=== PATIENT | male | born 1965 | race Caucasian/White ===

== ENCOUNTER 2018-07-26 05:25 | Emergency (ER) | payer OTHER ==
--- NOTE | 2018-07-26 06:05 | EDM.PDOC ---
ED HPI GENERAL MEDICAL PROBLEM - General Chief Complaint: ENT Problem Stated Complaint: BLEEDING NOSE Time Seen by Provider: 07/26/18 05:45 Source of Information: Reports: Patient, Old Records, RN History Limitations: Reports: No Limitations - History of Present Illness INITIAL COMMENTS - FREE TEXT/NARRATIVE: 52 yo male presents with epistaxis since about midnight. Is on warfarin. Has bleeding the prior night for about 90 min. Has never had to be treated for nose bleed. Is on metoprolol for HTN. No trauma ppt'd the bleeding. Onset: Today, Sudden Onset Date: 07/26/18 Onset Time: 12:00 Duration: Hour(s):, Waxing/Waning Location: Reports: Face (nose bleed) Quality: Reports: Other (no pain) Severity: Moderate Improves with: Reports: None Worsens with: Reports: None Context: Reports: Other (take warfarin) Associated Symptoms: Reports: No Other Symptoms Treatments CERTIFIED NOVELL ENGINEER: Reports: Other (see below) (none) denies pain Pain Score (Numeric/FACES): 0 - Related Data Allergies Allergy/AdvReac Type Severity Reaction Status Date / Time bacitracin Allergy Swelling Verified 10/02/14 06:44 [From Neosporin ([id number])] bacitracin zinc Allergy Swelling Verified 10/02/14 06:44 [From Neosporin (jja-[id number])] neomycin sulfate Allergy Swelling Verified 10/02/14 06:44 [From Neosporin ([id number])] polymyxin B Allergy Swelling Verified 10/02/14 06:44 [From Neosporin ([id number])] shrimp Allergy Airway Verified 07/26/18 05:30 Tightness Home Meds: Home Meds Ibuprofen [Motrin] 1 tab PO ASDIRECTED PRN 09/25/13 [History] Warfarin [Coumadin] 5 mg PO ASDIRECTED 09/25/13 [History] Warfarin [Coumadin] 7.5 mg PO ASDIRECTED 09/25/13 [History] ALPRAZolam [Alprazolam] 0.5 mg PO ASDIRECTED PRN 10/01/14 [History] Aspirin [Halfprin] 81 mg PO DAILY 10/01/14 [History] Hydroxyurea 500 mg PO DAILY 10/01/14 [History] Metoprolol Succinate [Toprol XL 50mg] 50 mg PO DAILY 07/26/18 [History] Past Medical History HEENT History: Reports: Impaired Vision Cardiovascular History: Reports: Afib, Blood Clots/VTE/DVT Musculoskeletal History: Reports: Fracture, Other (See Below) Other Musculoskeletal History: Tib/fib fx left leg Neurological History: Reports: Concussion Psychiatric History: Reports: Anxiety Hematologic History: Reports: Anticoagulation Therapy, Polycythemia Dermatologic History: Reports: Other (See Below) Other Dermatologic History: left leg vascular sugery due to poor circulation - Infectious Disease History Infectious Disease History: Reports: Chicken Pox - Past Surgical History Musculoskeletal Surgical History: Reports: Other (See Below) Other Musculoskeletal Surgeries/Procedures:: Surgical repair of tib/fib fx Social & Family History - Tobacco Use Smoking Status *Q: Never Smoker - Caffeine Use Caffeine Use: Reports: Coffee - Recreational Drug Use Recreational Drug Use: No ED ROS ENT - Review of Systems Review Of Systems: See Below Constitutional: Reports: No Symptoms HEENT: Reports: Nosebleed Respiratory: Reports: No Symptoms Cardiovascular: Reports: No Symptoms GI/Abdominal: Reports: No Symptoms : Reports: No Symptoms Skin: Reports: No Symptoms Neurological: Reports: No Symptoms ED EXAM, ENT - Physical Exam Exam: See Below Exam Limited By: No Limitations General Appearance: Alert, WD/WN, No Apparent Distress Eye Exam: Bilateral Eye: Normal Inspection Ears: Normal External Exam, Normal Canal, Hearing Grossly Normal, Normal TMs Nose: Active Bleeding (most of the blood seen was coming from the nasopharynx.) Mouth/Throat: Normal Inspection, Normal Lips, Bleeding (from nasopharynx). No: Normal Oropharynx (blood on wall of oropharynx) Head: Atraumatic, Normocephalic Neck: Normal Inspection Respiratory/Chest: No Respiratory Distress, No Accessory Muscle Use Extremities: Normal Inspection Neurological: Alert, Oriented, CN II-XII Intact, Normal Cognition, No Motor/ Sensory Deficits Psychiatric: Normal Affect, Normal Mood Skin: Warm, Dry, Intact, Normal Color, No Rash Course - Vital Signs Text/Narrative:: 7.5 cm Rhinorocket placed with 5 ml of air, good hemostasis achieved. Last Recorded V/S: Last Vital Signs Temp 36.5 C 07/26/18 05:35 Pulse 86 07/26/18 05:35 Resp 15 07/26/18 05:35 BP 149/81 H 07/26/18 05:35 Pulse Ox 96 07/26/18 05:35 - Orders/Labs/Meds Labs: Laboratory Tests 07/26/18 Range/Units 06:10 PT 27.4 H (9.5-12.0) sec INR 2.63 H D (0.80-1.20) Departure - Departure Time of Disposition: 06:46 Disposition: Home, Self-Care 01 Condition: Good Clinical Impression: Posterior epistaxis - Discharge Information *PRESCRIPTION DRUG MONITORING PROGRAM REVIEWED*: No *COPY OF PRESCRIPTION DRUG MONITORING REPORT IN PATIENT DALI: No Instructions: Nosebleed, [id number] Referrals: PCP,None [Primary Care Provider] - Forms: ED Department Discharge Additional Instructions: Hold warfarin today. Call [facility] to report your INR of 2.63. You may add a little air to your Rhinorocket if bleeding recurs. Rest today with no lifting. Recheck first thing Sunday morning in the clinic for removal of your Rhinorocket. Drink ample fluids today. Get up slowly from lying to sitting to standing. If you feel light-headed quickly lie down and drink more fluids.
[2018-07-26 06:55] VITALS: BP 117/67
== END 2018-07-26 07:15 | disposition home or self-care (01) ==
LOC: JP.ED 05:25
DX: R04.0 Epistaxis (principal); I48.91 Unspecified atrial fibrillation; Z79.01 Long term (current) use of anticoagulants; Z79.82 Long term (current) use of aspirin; Z79.899 Other long term (current) drug therapy
CPT/HCPCS: 30905; 36415; 85610; 99284-25

== ENCOUNTER 2018-12-23 22:51 | Emergency (ER) | payer OTHER ==
[2018-12-23 23:12] VITALS: BP 162/91; PULSE 86
--- NOTE | 2018-12-23 23:40 | EDM.PDOCBH ---
ED HPI GENERAL MEDICAL PROBLEM - General Stated Complaint: FAINTED,NAUSEA Time Seen by Provider: 12/23/18 23:20 Source of Information: Reports: Patient, Family History Limitations: Reports: No Limitations - History of Present Illness INITIAL COMMENTS - FREE TEXT/NARRATIVE: 53-year-old male presents with request for evaluation after a 10 second syncopal episode. He has chronic paroxysmal atrial fibrillation, is on Coumadin but admits he missed "a few doses" over the past couple of weeks. He's been feeling well, tonight after intercourse he got up and felt lightheaded and then fainted. Within "10 seconds " he felt better and was able to get up. He had no chest pain, shortness of breath, significant palpitations and did not get hurt falling. 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 Has no headache or fever. Onset: Sudden Duration: Minutes: (Around 10 minutes) Associated Symptoms: Reports: Other ([place] lightheaded prior to fainting, no palpitations) - Related Data Allergies Allergy/AdvReac Type Severity Reaction Status Date / Time bacitracin Allergy Swelling Verified 12/23/18 23:59 [From Neosporin ([id number])] bacitracin zinc Allergy Swelling Verified 12/23/18 23:59 [From Neosporin (poy-kjv-qrkyl)] neomycin sulfate Allergy Swelling Verified 12/23/18 23:59 [From Neosporin (tyg-ago-gyvab)] polymyxin B Allergy Swelling Verified 12/23/18 23:59 [From Neosporin (rwr-jcv-clofl)] shrimp Allergy Airway Verified 12/23/18 23:59 Tightness Home Meds: Home Meds Ibuprofen [Motrin] 1 tab PO ASDIRECTED PRN 09/25/13 [History] Warfarin [Coumadin] 5 mg PO ASDIRECTED 09/25/13 [History] Warfarin [Coumadin] 7.5 mg PO ASDIRECTED 09/25/13 [History] ALPRAZolam [Alprazolam] 0.5 mg PO ASDIRECTED PRN 10/01/14 [History] Aspirin [Halfprin] 81 mg PO DAILY 10/01/14 [History] Hydroxyurea 500 mg PO DAILY 10/01/14 [History] Metoprolol Succinate [Toprol XL 50mg] 50 mg PO DAILY 07/26/18 [History] Past Medical History HEENT History: Reports: Impaired Vision Cardiovascular History: Reports: Afib, Blood Clots/VTE/DVT Musculoskeletal History: Reports: Fracture, Other (See Below) Other Musculoskeletal History: Tib/fib fx left leg Neurological History: Reports: Concussion Psychiatric History: Reports: Anxiety Hematologic History: Reports: Anticoagulation Therapy, Polycythemia Dermatologic History: Reports: Other (See Below) Other Dermatologic History: left leg vascular sugery due to poor circulation - Infectious Disease History Infectious Disease History: Reports: Chicken Pox - Past Surgical History Musculoskeletal Surgical History: Reports: Other (See Below) Other Musculoskeletal Surgeries/Procedures:: Surgical repair of tib/fib fx Social & Family History - Caffeine Use Caffeine Use: Reports: Coffee ED ROS GENERAL - Review of Systems Review Of Systems: See Below Constitutional: Denies: Fever, Chills HEENT: Denies: Vision Change Respiratory: Denies: Shortness of Breath Cardiovascular: Denies: Chest Pain, Palpitations GI/Abdominal: Denies: Abdominal Pain, Nausea, Vomiting : Reports: No Symptoms Skin: Reports: No Symptoms Neurological: Denies: Headache ED EXAM, BEHAVIORAL HEALTH - Physical Exam Exam: See Below Exam Limited By: No Limitations General Appearance: Alert, No Apparent Distress Eye Exam: Bilateral Eye: Normal Inspection Head: Atraumatic Respiratory/Chest: No Respiratory Distress, Lungs Clear Cardiovascular: Irregularly Irregular. No: Tachycardia GI/Abdominal: Soft, Non-Tender Extremities: Other (Patient has an Goran wrap around the left leg due to chronic vascular insufficiency). No: Pedal Edema Neurological: Alert, Normal Mood/Affect, No Motor/Sensory Deficits (Slight weakness of the left leg which is chronic), Oriented x 3 Psychiatric: Alert, Normal Affect Skin Exam: Warm, Dry COURSE, BEHAVIORAL HEALTH COMP - Course Vital Signs: Last Vital Signs Temp 96.4 F 12/24/18 00:05 Pulse 86 12/24/18 00:05 Resp 20 12/24/18 00:05 BP 162/91 H 12/24/18 00:05 Pulse Ox 93 L 12/24/18 00:05 Orders, Labs, Meds: Laboratory Tests 12/23/18 12/23/18 12/23/18 Range/Units 23:30 23:30 23:30 WBC 5.3 (4.5-11.0) K/uL RBC 4.53 (4.30-5.90) M/uL Hgb 15.9 H D (12.0-15.0) g/dL Hct 47.2 (40.0-54.0) % MCV 104 H (80-98) fL MCH 35 H (27-31) pg MCHC 34 (32-36) % Plt Count 263 (150-400) K/uL Neut % (Auto) 59 (36-66) % Lymph % (Auto) 31 (24-44) % [place] % (Auto) 8 H (2-6) % Eos % (Auto) 2 (2-4) % Baso % (Auto) 1 (0-1) % PT 18.1 H (9.5-12.0) sec INR 1.73 H (0.80-1.20) Sodium 140 (140-148) mmol/L Potassium 3.8 (3.6-5.2) mmol/L Chloride 104 (100-108) mmol/L Carbon Dioxide 26 (21-32) mmol/L Anion Gap 9.6 (5.0-14.0) mmol/L BUN 23 H (7-18) mg/dL Creatinine 1.1 (0.8-1.3) mg/dL Est Cr Clr Drug Dosing 84.26 mL/min Estimated GFR (MDRD) > 60 (>60) Glucose 96 (74-106) mg/dL Calcium 8.8 (8.5-10.1) mg/dL Troponin I < 0.017 (0.000-0.056) ng/mL Re-Assessment/Re-Exam: Patient was placed on cardiac monitoring and showed an atrial fibrillation with good rate control in the 80s and 90s. This was persistent throughout his hospital stay. CBC CMP and troponin were obtained as well as an INR. Labs were reassuring, however INR was only 1.75. Not only is he subtherapeutic with his anticoagulation, we do not know how long he has been in atrial fibrillation. His syncopal episode was likely vasovagal related, possibly rate related from the atrial fibrillation. Encouraged him to continue his regular medications, try to not miss any of his Coumadin doses and recheck with Dr. Penn in 1-2 weeks. He may be a candidate for cardioversion or electrophysiology evaluation if atrial fibrillation is persistent. A troponin was also checked and was 0. Patient was asymptomatic on discharge. Departure - Departure Time of Disposition: 00:27 Disposition: Home, Self-Care 01 Clinical Impression: Vasovagal syncope Atrial fibrillation Qualifiers: Atrial fibrillation type: paroxysmal Qualified Code(s): I48.0 - Paroxysmal atrial fibrillation - Discharge Information Instructions: Atrial Fibrillation, [id number] Referrals: Camron Penn MD [Primary Care Provider] - Forms: ED Department Discharge Care Plan Goals: Take all medications as prescribed, and recheck with Dr. Penn in the next 1-2 weeks. Consider cardiology consultation if atrial fibrillation is persistent. Return sooner if worsening symptoms or you develop other concerns.
== END 2018-12-24 00:27 | disposition home or self-care (01) ==
LOC: JP.ED 22:51
DX: I48.0 Paroxysmal atrial fibrillation (principal); R55 Syncope and collapse; F41.9 Anxiety disorder, unspecified; Z88.1 Allergy status to other antibiotic agents; Z91.013 Allergy to seafood; Z79.01 Long term (current) use of anticoagulants; Z79.82 Long term (current) use of aspirin; Z79.899 Other long term (current) drug therapy; Z86.73 Personal history of transient ischemic attack (TIA), and cerebral infarction without residual deficits
CPT/HCPCS: 36415; 80048; 84484; 85025; 85610; 93005; 99283

== ENCOUNTER 2019-12-23 06:44 | Day surgery (SDC) | payer OTHER ==
[2019-12-23] MEDS ORDERED: Propofol 200 MG/20 ML SDV ONE ×2 (07:08→07:58)
[2019-12-23] MEDS ORDERED: Midazolam 1 MG/ML 2 ML SDV ONE (07:09)
[2019-12-23] MEDS ORDERED: fentaNYL 100 MCG/2 ML SDV ONE (07:09)
[2019-12-23] MEDS ORDERED: Dextrose 5%-Lactated Ringers 1,000 ML IV SCH (07:30)
[2019-12-23 09:07] VITALS: BP 101/64; PULSE 62
--- NOTE | 2019-12-29 16:32 | OR ---
DATE OF PROCEDURE: 12/23/2019 SURGEON: Delon Membreno MD PREOPERATIVE DIAGNOSIS: Family history of colon carcinoma. POSTOPERATIVE DIAGNOSES: 1. Family history of colon carcinoma. 2. Single polyp in the ascending colon. OPERATIVE PROCEDURE: Flexible colonoscopy with polypectomy by snare technique. ANESTHESIA: IV sedation. INDICATIONS FOR PROCEDURE: This is a 54-year-old male presenting for screening colonoscopy. He does have a family history of his mother having succumbed from colon carcinoma. Plan is to proceed with flexible colonoscopy with biopsies and/or polypectomy as indicated. Potential risks including bleeding and perforation were discussed, and the patient wishes to proceed. DETAILS OF PROCEDURE: The patient was taken to the operating room, placed in a left lateral decubitus position. IV sedation was administered, after which the initial digital rectal exam was performed, which was unremarkable. Colonoscope was then passed into the rectum with retroflexion revealing uncomplicated hemorrhoidal columns. Scope was eventually passed to the level of the cecum. The prep was quite good with only being a small amount of scattered liquid stool present. To that level, there was a single 2 to 3 mm polyp in the ascending colon. This was excised by means of a snare technique and good hemostasis was evident at the polypectomy site. Otherwise, there were no remaining areas of polyps or signs of neoplasia. No colitis. No diverticular disease. Scope was then withdrawn and the above findings were reconfirmed, and the procedure was then concluded. Assuming the present polyp is an adenomatous polyp, the next colonoscopy should be in 3 years. We will contact the patient with regard to the pathologic findings and then appropriate followup. Delon Membreno MD /[id number]
== END 2019-12-23 09:20 | disposition home or self-care (01) ==
LOC: JP.SDS 06:44
PROVIDERS: ATTEND Surgery
DX: Z12.11 Encounter for screening for malignant neoplasm of colon (principal); D12.2 Benign neoplasm of ascending colon; K64.9 Unspecified hemorrhoids; I10 Essential (primary) hypertension; I48.91 Unspecified atrial fibrillation; Z80.0 Family history of malignant neoplasm of digestive organs
CPT/HCPCS: 36415; 45385; 85610; 88305; J2250; J2704; J3010; J7121

== ENCOUNTER 2022-11-16 06:27 | Day surgery (SDC) | payer OTHER ==
[2022-11-16] MEDS ORDERED: Dextrose 5%-Lactated Ringers 1,000 ML IV SCH (07:00)
[2022-11-16] MEDS ORDERED: Propofol 200 MG/20 ML SDV ONE (07:13)
[2022-11-16] MEDS ORDERED: fentaNYL 50 MCG/ML SDV ONE (07:13)
[2022-11-16] MEDS ORDERED: Midazolam 1 MG/ML 2 ML SDV ONE (07:13)
[2022-11-16 07:29] LABS: INR 1.8; PROTHROMBIN TIME 17.8 sec (9.2-10.6)
[2022-11-16 08:46] VITALS: BP 111/46
[2022-11-16 08:49] VITALS: PULSE 63
== END 2022-11-16 09:13 | disposition home or self-care (01) ==
LOC: JP.SDS 06:27
PROVIDERS: ATTEND Surgery
DX: Z12.11 Encounter for screening for malignant neoplasm of colon (principal); K57.30 Diverticulosis of large intestine without perforation or abscess without bleeding; I10 Essential (primary) hypertension; K21.9 Gastro-esophageal reflux disease without esophagitis; I82.409 Acute embolism and thrombosis of unspecified deep veins of unspecified lower extremity; R00.2 Palpitations; I48.91 Unspecified atrial fibrillation; E66.9 Obesity, unspecified; Z68.33 Body mass index [BMI] 33.0-33.9, adult; Z86.010 Personal history of colon polyps; Z79.899 Other long term (current) drug therapy; Z88.1 Allergy status to other antibiotic agents; Z91.013 Allergy to seafood
CPT/HCPCS: 36415; 45378; 85610; J2250; J2704; J3010; J7121

== ENCOUNTER 2022-12-10 06:46 | Emergency (ER) | payer OTHER ==
[2022-12-10 06:57] VITALS: BP 165/93; PULSE 75
== END 2022-12-10 07:56 | disposition home or self-care (01) ==
LOC: JP.ED 06:46
DX: I50.9 Heart failure, unspecified (principal); I48.91 Unspecified atrial fibrillation; Z79.01 Long term (current) use of anticoagulants; Z86.16 Personal history of COVID-19; Z88.8 Allergy status to other drugs, medicaments and biological substances; Z88.1 Allergy status to other antibiotic agents; Z91.013 Allergy to seafood; Z79.82 Long term (current) use of aspirin; Z79.899 Other long term (current) drug therapy
CPT/HCPCS: 71046; 71046-26; 93005; 99283